=== PATIENT | female | born 1980 | race Caucasian/White ===

== ENCOUNTER 2020-06-09 05:36 | Outpatient (RCR) | payer MEDICAID ==
[~2020-06-09] VITALS: Ht 167.6 cm; Wt 127.8 kg
[2020-06-09] MEDS ORDERED: ESCI5TAB PO (11:31)
[2020-06-09] MEDS ORDERED: CETI10TA17 PO (11:35)
[2020-06-09] MEDS ORDERED: NF-VITD400 PO (11:36)
--- NOTE | 2020-06-10 09:17 | NUR ---
Notified of Positive COVID test.
== END 2020-06-09 15:18 | disposition home or self-care (01) ==
LOC: PREOP 05:36
PROVIDERS: ATTEND Surgery
DX: Z01.812 Encounter for preprocedural laboratory examination (principal); U07.1 COVID-19
CPT/HCPCS: 87635

== ENCOUNTER 2020-06-25 08:52 | Emergency (ER) | payer MEDICAID ==
[~2020-06-25] VITALS: Ht 167 cm; Wt 127.0 kg
[~2020-06-25 08:52] MED LIST: CETI10TA17 PO; ESCI5TAB PO; NF-VITD400 PO
[2020-06-25] MEDS ORDERED: albuterol (09:29)
[2020-06-25] MEDS ORDERED: AZIT250T12 (09:29)
[2020-06-25] MEDS ORDERED: PRD20T (09:29)
--- NOTE | 2020-06-25 09:50 | ED Respiratory ---
General Chief Complaint: Cough/Cold/Flu Symptoms Stated Complaint: SOB,COUGH, COVID + Nursing Triage Note: PT ABM TO ROOM 9 PT CO OF TESTING COVID + ON 06/09, STARTED FEVERS ON 06/20, HAS SORETHROAT, DRY COUGH,NO TASTE OR SMELL, BODY ACHES Source: patient Exam Limitations: no limitations History of Present Illness Date Seen by Provider: Jun 25, 2020 Time Seen by Provider: 09:11 Initial Comments Patient presents to the ER by private conveyance with chief complaint that for the past 2 days she's had increasing work of breathing coughing with no production of sputum and nausea vomiting and chronic diarrhea. She's been worked up outpatient for possible ulcerative colitis by Dr. Chowdhury. She had COVID-19 positive on 09 June and started becoming symptomatic on the . Since then she was doing well not having any fevers until last 2 days. She has no history of lung disease. She denies having dysuria. Did not get a flu vaccine this year. Does not smoke or have secondhand exposure. Allergies and Home Medications Home Medications Benzonatate 100 Mg Capsule, 100 MG PO Q6H PRN for COUGH Prescribed by: ZEHRA PRETTY on 06/25/20 09 Ondansetron 4 Mg Tab.rapdis, 4 MG PO Q6H PRN for NAUSEA/VOMITING Prescribed by: ZEHRA PRETTY on 06/25/20 0951 Vitamin D 10 Mcg Tablet, 400 MCG PO WEEK, (Reported) Patient Home Medication List Home Medication List Reviewed: Yes Review of Systems Review of Systems Constitutional: No chills, No diaphoresis EENTM: No ear discharge, No ear pain Respiratory: No cough, No short of breath Cardiovascular: No chest pain, No palpitations Gastrointestinal: No abdominal pain; diarrhea, nausea, vomiting Genitourinary: No discharge, No dysuria Musculoskeletal: No back pain, No joint pain All Other Systems Reviewed Negative Unless Noted: Yes Past Qmddypg-Sekyjr-Nzyzmg Hx Patient Social History Alcohol Use: Denies Use Number of Drinks Today: AA Alcohol Beverage of Choice: Beer Recreational Drug Use: No Smoking Status: Former Smoker Type Used: Cigarettes Former Smoker, Quit: Apr 29, 2019 2nd Hand Smoke Exposure: No Recent Foreign Travel: No Contact w/Someone Who Travel: No Recent Infectious Disease Expo: No Recent Hopitalizations: No Physical Abuse: No Sexual Abuse: No Immunizations Up To Date Tetanus Booster (TDap): Unknown Seasonal Allergies Seasonal Allergies: Yes Past Medical History Surgeries: Yes Adenoidectomy, Appendectomy, Ear Surgery, Gallbladder, Hysterectomy Respiratory: No Currently Using CPAP: No Currently Using BIPAP: No Cardiac: No Neurological: No Female Reproductive Disorders: Denies CARD SERVICES SPECIALIST History: Hysterectomy Sexually Transmitted Disease: No HIV/AIDS: No Genitourinary: No Gastrointestinal: Yes Colitis Musculoskeletal: No Endocrine: No HEENT: No Loss of Vision: Denies Hearing Impairment: Denies Cancer: No Psychosocial: Yes Anxiety, Depression Integumentary: No Blood Disorders: No Physical Exam Vital Signs - First Documented 06/25/20 09:10 Temp 37.0 Pulse 104 Resp 22 B/P (MAP) 142/103 (116) Pulse Ox 96 O2 Delivery Room Air Capillary Refill : Less Than 3 Seconds Height: '" Weight: lbs. oz. kg; 45.00 BMI Method: General Appearance: WD/WN, no apparent distress Eyes: Bilateral Eye Normal Inspection, Bilateral Eye PERRL, Bilateral Eye EOMI HEENT: PERRL/EOMI, pharynx normal Neck: full range of motion, normal inspection Respiratory: lungs clear, normal breath sounds, no respiratory distress, no accessory muscle use Cardiovascular: normal peripheral pulses, regular rate, rhythm Gastrointestinal: normal bowel sounds, non tender, soft Neurologic/Psychiatric: alert, normal mood/affect, oriented x 3 Skin: normal color, warm/dry Progress/Results/Core Measures Suspected Sepsis Recent Fever Within 48 Hours: Yes Infection Criteria Present: Documented Infection New/Unexplained Altered Menta: No Sepsis Screen: Possible Severe Sepsis Risk SIRS Temperature: Pulse: 104 Respiratory Rate: 22 Blood Pressure 142 /103 Mean: 116 Results/Orders Micro Results Microbiology 06/25/20 Influenza Types A,B Antigen (OBIE) - Final, Complete My Orders Orders - ZEHRA PRETTY Influenza A And B Antigens (06/25/20 09:29) Vital Signs/I&O 06/25/20 09:10 Temp 37.0 Pulse 104 Resp 22 B/P (MAP) 142/103 (116) Pulse Ox 96 O2 Delivery Room Air Capillary Refill : Less Than 3 Seconds Blood Pressure Mean: 116 Progress Note : Time: 09:47 Progress Note Patient has normal vital signs with sats in the 95-97% range on room air with no labored breathing. Influenza swab was obtained to rule out coinfection. Chest x- ray is not indicated at this time. She is already on steroids and azithromycin since Sunday. We'll give her some nausea medicine and Tessalon Perles. She is okay with this plan. We have discussed return precautions and encourage her to get a pulse oximeter. Departure Impression Primary Impression: COVID-19 Disposition: 01 HOME, SELF-CARE Condition: Stable Departure-Patient Inst. Decision time for Depature: 09:48 Patient Instructions: Coronavirus Disease 2019 (COVID-19) (DC) Add. Discharge Instructions: Drink plenty fluids. If you have nausea you may take one tablet of ondansetron every 6 hours under the tongue as necessary. If you have diarrhea you can try some Imodium if you're not able to keep up with your drinking. If your symptoms are worsening or you cannot catch your breath then you may return to the ER. You may obtain a pulse oximeter and as long as you're having consistent readings at or above 94% then you're doing okay from an oxygenation standpoint. All discharge instructions reviewed with patient and/or family. Voiced understanding. Scripts Ondansetron (Ondansetron Odt) 4 Mg Tab.rapdis 4 MG PO Q6H PRN for NAUSEA/VOMITING, #15 TAB 0 Refills Prov: ZEHRA PRETTY 06/25/20 Benzonatate (TESSALON PERLES) 100 Mg Capsule 100 MG PO Q6H PRN for COUGH, #30 CAP 0 Refills Prov: ZEHRA PRETTY 06/25/20 ZEHRA PRETTY Jun 25, 2020 09:50
[2020-06-25] MEDS ORDERED: ONDA4TAB11 PO (09:51)
[2020-06-25] MEDS ORDERED: BENZ100C18 PO (09:51)
[2020-06-25 10:57] VITALS: BP 142/103
== END 2020-06-25 10:57 | disposition home or self-care (01) ==
LOC: EDUNIT# 08:52 → ER 08:53
DX: U07.1 COVID-19 (principal); Z87.891 Personal history of nicotine dependence
CPT/HCPCS: 87804

== ENCOUNTER 2020-08-24 05:43 | Outpatient (RCR) | payer MEDICAID ==
[~2020-08-24] VITALS: Ht 167.7 cm; Wt 127.2 kg
[~2020-08-24 05:43] MED LIST changes: +AZIT250T12; +BENZ100C18 PO; +ONDA4TAB11 PO; +PRD20T; +albuterol
[2020-08-24] MEDS ORDERED: CETI10CA PO (14:52)
[2020-08-24] MEDS ORDERED: CYAN500011 PO (14:52)
== END 2020-08-24 15:14 | disposition home or self-care (01) ==
LOC: PREOP 05:43
PROVIDERS: ATTEND Surgery
DX: Z01.812 Encounter for preprocedural laboratory examination (principal); K62.5 Hemorrhage of anus and rectum; R19.7 Diarrhea, unspecified

== ENCOUNTER 2020-09-01 08:51 | Day surgery (SDC) | payer MEDICAID ==
--- NOTE | 2020-08-19 07:21 | HISTORY AND PHYSICAL ---
DATE OF SERVICE: PROCEDURE DATE: 09/01/2020. ATTENDING PHYSICIAN: JUAN Koenig HISTORY OF PRESENT ILLNESS: The patient is a 40-year-old female who was referred over to us for episodes of rectal bleeding. She reports that she was having issues with bright red blood in her stools in 04/2020 and this has been continuously intermittent since that time. She does report a history of crampy lower abdominal pain with alternating episodes of diarrhea and constipation. She does not report any family history of colon cancer nor any inflammatory bowel disease. She does report spasms in the rectal area, but denied any mucus in her stools. PAST MEDICAL HISTORY: PCOS, anxiety, vitamin D deficiency, vitamin B12 deficiency. PAST SURGICAL HISTORY: Laparoscopic appendectomy in 2004, laparoscopic cholecystectomy in 2006, laparoscopic complete hysterectomy in 2014. ALLERGIES: SULFA, PERCOCET. MEDICATIONS: Metformin 500 mg daily, Lexapro 10 mg daily, vitamin D weekly, vitamin B12. SOCIAL HISTORY: Previous tobacco smoker, half pack per day for 25 years, quit in 2018. Rare for alcohol. FAMILY HISTORY: Mother, breast cancer and lung cancer. Maternal grandfather, myocardial infarction. REVIEW OF SYSTEMS: This is a well-nourished female in no acute distress. She is not experiencing any shortness of breath or difficulty breathing. No chest pain, palpitations or diaphoresis. No nausea or vomiting. She does report lower crampy abdominal pain with alternating episodes of diarrhea and constipation. She also reports episodes of bright red blood in her stool. No dark tarry stools. No recent inadvertent weight loss. All other review of systems negative. VITAL SIGNS: Weight is 281.7 pounds, height 5 feet 6 inches. PHYSICAL EXAMINATION: CHEST: Clear. Good breath sounds bilaterally. HEART: Regular, no murmurs. EXTREMITIES: No lower extremity edema. Negative Homans sign. HEENT: No scleral icterus. NECK: No cervical lymphadenopathy. ABDOMEN: Soft, nontender, nondistended. SKIN: Warm, dry and pink. NEUROLOGIC: Awake, alert and oriented x3. ASSESSMENT AND PLAN: A 40-year-old female with a lower crampy abdominal pain with associated diarrhea and constipation with episodes of bright red blood in her stool. She also has a history of colitis in the past. We will proceed with scheduling her for a colonoscopy. Risks and benefits of the procedure as well as the procedure and home care instructions were explained to the patient. The patient verbalized understanding of instructions and agrees to proceed as planned. Job ID: [id number] DocumentID: [id number] Dictated Date: 08/04/2020 12:02:34 Pile Driving Supervisor Date: 08/04/2020 12:47:48 Dictated By: BLAINE CURRIE APRN
[2020-09-01] VITALS (13 sets, daily range): BP systolic 124–149; BP diastolic 60–96
[~2020-09-01] VITALS: Ht 167.7 cm; Wt 127.2 kg
[~2020-09-01 08:51] MED LIST changes: +CETI10CA PO; +CYAN500011 PO
[2020-09-01] MEDS ORDERED: NS IV 500 ML 500 ML ONE (09:06)
[2020-09-01] MEDS ORDERED: NS IV 500 ML 500 ML IV PRN (09:15)
[2020-09-01] MEDS ORDERED: MIDAZOLAM 5 MG/5 ML (VERSED) VIAL IV ONE (09:15)
[2020-09-01] MEDS ORDERED: fentaNYL INJECTION 100 MCG/2 ML AMP IVP ONE (09:15)
[2020-09-01] MEDS ORDERED: LIDOCAINE JELLY 2% 6 ML SYRINGE MM PRN (09:15)
[2020-09-01] MEDS ORDERED: fentaNYL INJECTION 100 MCG/2 ML AMP ONE ×2 (09:36→09:37)
[2020-09-01] MEDS ORDERED: ESCI5TAB16 PO (09:37)
[2020-09-01] MEDS ORDERED: MIDAZOLAM 5 MG/5 ML (VERSED) VIAL ONE ×3 (09:37)
--- NOTE | 2020-09-01 09:48 | Conscious Sedation/ASA ---
Conscious Sedation Pre-Proced Time 09:30 ASA Score 2 For ASA 3 and 4: Consider anesthesia and medical clearance. Also, for patients with a history of failed moderate sedation consider anesthesia. Airway Lungs Heart ASA score ASA 1: a normal healthy patient ASA 2: a patient with a mild systemic disease (mid diabetes, controlled hypertension, obesity ASA 3: a patient with a severe systemic disease that limits activity (angina, COPD, prior Myocardial infarction) ASA 4: a patient with an incapacitating disease that is a constant threat to life (CHF, renal failure) ASA 5: a moribund patient not expected to survive 24 hrs. (ruptured aneurysm) ASA 6: a declared brain- patient whose organs are being harvested. For emergent operations, add the letter E after the classification Mallampati Classification Grade 2 Sedation Plan Analgesia, Amnesia, Plan communicated to team members, Discussed options with patient/fam, Discussed risks with patient/fam The patient is an appropriate candidate to undergo the planned procedure, sedation, and anesthesia. The patient immediately re-assessed prior to indication. BRIGHT HERNANDEZ MD Sep 01, 2020 09:48
--- NOTE | 2020-09-01 09:48 | Progress Note-Pre Operative ---
Pre-Operative Progress Note H&P Reviewed The H&P was reviewed, patient examined and no changes noted. Date Seen by Provider: Sep 01, 2020 Time Seen by Provider: 09:30 Date H&P Reviewed: Sep 01, 2020 Time H&P Reviewed: :30 Pre-Operative Diagnosis: rectal bleed, hx colitis BRIGHT HERNANDEZ MD Sep 01, 2020 09:48
--- NOTE | 2020-09-01 09:50 | Discharge Inst-Surgical ---
D/C Lap Instructions-DAVID Follow Up Appt in 2 weeks Activity as tolerated High Fiber Diet 25g or more per day Avoid Alcohol, Caffeine, Spicy [place] and Acid foods. Drink 64 fluid oz or more of fluids per day. Symptoms to Report: Fever over 101 degree F, Nausea/Vomiting If any problems/questions: Contact your physician or go to Emergency Room BRIGHT HERNANDEZ MD Sep 01, 2020 09:50
[2020-09-01] MEDS ORDERED: HYDROcodone/APAP 5 MG/325 MG (LORTAB) TAB PO PRN (10:00)
[2020-09-01] MEDS ORDERED: morphine INJ 10 MG/ML 1ML (SYR OR VIAL) IVP PRN ×2 (10:00)
[2020-09-01] MEDS ORDERED: ONDANSETRON 4 MG/2 ML (SDV) Z0FRAN IVP PRN (10:00)
--- NOTE | 2020-09-01 10:23 | Progress Note-Post Operative ---
Post-Operative Progess Note Surgeon (s)/Director School Of Nursing (s) Surgeon BRIGHT HERNANDEZ MD Director School Of Nursing: none Pre-Operative Diagnosis rectal bleed, hx colitis Post-Operative Diagnosis chronic stage 2-3 ext and int hemorrhoids, HP polyp rectum Procedure & Operative Findings Date of Procedure 09/01/20 Procedure Performed/Findings colonoscopy with bx and polypectomy Anesthesia Type cs Estimated Blood Loss Estimated blood loss (mL): minimal Specimens/Packing Specimens Removed rectal polyp BRIGHT HERNANDEZ MD Sep 01, 2020 10:23
--- NOTE | 2020-09-01 11:07 | OPERATIVE REPORT ---
DATE OF SERVICE: 09/01/2020 ATTENDING TACTICAL DEBRIEFER OFFICER: JUAN Koenig PREOPERATIVE DIAGNOSES: Rectal bleed with a history of polyp and colitis. POSTOPERATIVE DIAGNOSES: Chronic between stage II and III external and internal hemorrhoids, small hyperplastic polyp of the rectum. PROCEDURE: Colonoscopy with biopsy and polypectomy. SURGEON: Bright Hernandez MD. ANESTHESIA: Conscious sedation. ESTIMATED BLOOD LOSS: Minimal. FINDINGS: Chronic between stage II and III external and internal hemorrhoids, small hyperplastic polyp of the rectum. DISPOSITION: The patient tolerated the procedure well. INDICATIONS: The patient is a 40-year-old female referred over to us for rectal bleeding. She states that she has had 2 previous colonoscopies for a history of polyp as well as a history of crampy abdominal pain in which she believes to be colitis. She states that she normally goes in 5-year intervals. She does not report any family history of colon cancer as well as no family history of inflammatory bowel disease. She also states that even with a history of colitis, she does not recall ever being treated for this. She does report that she has had some crampy abdominal pain as well as intermittent episodes of rectal bleeding since 04/2020. DESCRIPTION OF PROCEDURE: The patient was brought to the endoscopy suite, laid in left lateral decubitus position. After adequate IV pain and sedative medications and conscious sedation anesthesia, a digital rectal examination was performed, which revealed chronic between stage II and III external and internal hemorrhoids, not actively edematous nor inflamed and no bleeding. Normal sphincter tone was felt and there were no palpable masses. The endoscope was then intubated to the anus and rectum gently insufflated. The endoscope was then advanced to the valves of Laws of the rectum. At the inferior valve of Laws, a small hyperplastic polyp approximately 1 to 2 mm in size was identified. This was completely removed with biopsy forceps with visualization of good hemostasis. The endoscope was then advanced to the remainder of the valves of Laws of the rectum with no mucosal inflammatory changes identified. The endoscope was then advanced through the remainder of the sigmoid, descending, transverse and ascending colon to the cecum. There were no other lesions identified as well as no mucosal inflammatory changes to indicate any active or chronic colitis. Random biopsies were taken of the cecum, ascending colon, descending colon as well as the rectum with biopsy forceps with visualization of good hemostasis. The patient tolerated the procedure well. We will recommend continued medical management. We feel that she does have issues with diarrhea and constipation, which is not as consistent with a colitis as well as between stage II and III external and internal hemorrhoids, which may likely be causing her intermittent rectal bleeding. We will recommend a high fiber diet with at least 25 to 30 grams of fiber daily as well as significant amounts of water to promote soft stools on a daily basis. She does not have any family history of colon cancer and if she does not have any documented evidence of ulcerative colitis, she may span out screening colonoscopy to a 10-year interval. Job ID: [id number] DocumentID: [id number] Dictated Date: 09/01/2020 10:29:12 Chief Digital Media Officer Date: 09/01/2020 11:06:55 Dictated By: BRIGHT HERNANDEZ MD MTDD
== END 2020-09-01 11:30 | disposition home or self-care (01) ==
LOC: ENDO 08:51
PROVIDERS: ATTEND Surgery
DX: K62.1 Rectal polyp (principal); K62.5 Hemorrhage of anus and rectum; K64.2 Third degree hemorrhoids; F41.9 Anxiety disorder, unspecified; E28.2 Polycystic ovarian syndrome; Z79.899 Other long term (current) drug therapy; Z88.2 Allergy status to sulfonamides; Z88.5 Allergy status to narcotic agent; Z87.891 Personal history of nicotine dependence; Z86.010 Personal history of colon polyps; Z80.3 Family history of malignant neoplasm of breast; Z80.1 Family history of malignant neoplasm of trachea, bronchus and lung
CPT/HCPCS: 88305

== ENCOUNTER → 2023-05-04 | Outpatient (CLI) | payer OTHER, MEDICAID ==
[~2023-05-04] MED LIST changes: +ESCI5TAB16 PO
--- NOTE | 2023-05-08 11:20 | Diagnostic Imaging Report ---
INDICATION: Screening. EXAMINATION: Bilateral digital 2D and 3D screening with CAD. COMPARISON: June 2021. BREAST DENSITY: 2. FINDINGS: A new focal asymmetry in the left breast at posterior depth in the upper outer quadrant is present. Diagnostic views with spot compression in the CC, MLO, and 90 degree lateral medial views are recommended. At that time, ultrasound may be needed. The right mammogram is stable and negative. There are no suspicious calcifications. IMPRESSION: New asymmetric density at posterior depth in the upper outer quadrant of the left breast. Diagnostic views and possible ultrasound are recommended. ACR BI-RADS Category 0: Incomplete. (Needs additional imaging evaluation). Result letter will be mailed to the patient. Note: At least 10% of breast cancer is not imaged by mammography. Dictated by: Dictated on workstation # [id number]
== END ==
LOC: RAD 15:30
PROVIDERS: ATTEND Nurse Practitioner Family
DX: Z12.31 Encounter for screening mammogram for malignant neoplasm of breast (principal); R92.30 Dense breasts, unspecified
CPT/HCPCS: 77063; 77067

== ENCOUNTER → 2023-06-28 | Outpatient (CLI) | payer MEDICAID ==
--- NOTE | 2023-06-28 09:25 | Diagnostic Imaging Report ---
INDICATION: Left breast asymmetry. Patient presents for additional views. Correlation is made with recent screening mammogram from 05/04/2023. Unilateral left 2-D and 3-D diagnostic mammography was performed with CAD. There is included spot compression CC and ML views as well as conventional 90 degrees lateral views. Additional views show persistent area of parenchymal asymmetry in the upper outer left breast approximately 8 to 9 cm from the nipple. No definite discrete mass or suspicious microcalcifications are identified. Left axilla is unremarkable. IMPRESSION: There is some residual parenchymal asymmetry in the upper outer left breast posterior depth. Further evaluation of this area with ultrasound is recommended and will be performed today. ACR BI-RADS Category 0: Incomplete. (Needs additional imaging evaluation). Result letter will be mailed to the patient. Note: At least 10% of breast cancer is not imaged by mammography. BI-RADS 0 Dictated by: Dictated on workstation # [id number]
--- NOTE | 2023-06-28 12:06 | Diagnostic Imaging Report ---
INDICATION: Abnormal mammogram. Correlation is made with diagnostic mammogram earlier performed earlier the same day as well as screening mammogram from 05/04/2023. Sonographic interrogation upper outer left breast was performed. There is a small approximately 3 to 4 mm cyst at the 2 o'clock location of the left breast, 8 cm from the nipple. No other solid or cystic mass identified. No abnormalities identified to account for the area of parenchymal asymmetry noted mammographically. IMPRESSION: Benign findings. Patient may return to routine annual screening mammography. ACR BI-RADS Category 2: Benign findings. Result letter will be mailed to the patient. Note: At least 10% of breast cancer is not imaged by mammography. BI-RADS Category 2 Dictated by: Dictated on workstation # [id number]
== END ==
LOC: RAD 08:30
PROVIDERS: ATTEND Nurse Practitioner Family
DX: R92.8 Other abnormal and inconclusive findings on diagnostic imaging of breast (principal); N64.89 Other specified disorders of breast
CPT/HCPCS: 76642; 77065; G0279